=== PATIENT | female | born 1985 | race Caucasian/White ===

== ENCOUNTER 2024-03-17 05:55 | Inpatient (IN) | payer OTHER ==
[2024-03-17] MEDS: ELECTROLYTE-148 SOLN 500 ML IV SCH (06:20)
[2024-03-17 06:43] VITALS: BMI 31.4
[2024-03-17] MEDS: ELECTROLYTE-148 SOLN 1,000 ML IV SCH ×2 (07:30→10:47)
[2024-03-17] MEDS: CITRIC ACID/SODIUM CITRATE 30 ML UNIT-DOSE CUP PO ONE (07:35)
[2024-03-17] MEDS ORDERED: morphine SULFATE/PF 1 MG/2 ML (2cc Syringe - QUVA) ONE (07:56)
[2024-03-17] MEDS ORDERED: OXYTOCIN 10 UNITS/ML VIAL ONE (07:56)
[2024-03-17] MEDS ORDERED: FENTANYL CITRATE/PF 50 MCG/ML VIAL ONE (07:56)
[2024-03-17] MEDS ORDERED: PHENYLEPHRINE HCL 10 MG/1 ML SINGLE DOSE VIAL ONE (07:56)
[2024-03-17] MEDS ORDERED: KETOROLAC TROMETHAMINE 30 MG/1 ML VIAL ONE (07:56)
[2024-03-17] MEDS ORDERED: ONDANSETRON 4 MG/2 ML VIAL ONE (07:56)
[2024-03-17] MEDS ORDERED: ceFAZolin SODIUM 1 GM VIAL ONE (07:59)
[2024-03-17] MEDS ORDERED: METHYLERGONOVINE MALEATE 0.2 MG/1 ML AMP IM PRN (08:30)
[2024-03-17] MEDS ORDERED: ONDANSETRON 4 MG/2 ML VIAL IVPUSH PRN (10:27)
[2024-03-17] MEDS: FERROUS SO4 325 MG TABLET (FP) PO SCH (10:46)
[2024-03-17] MEDS: PRENATAL VITAMINS W/ FOLIC ACID TABLET (FP) PO SCH (10:47)
[2024-03-17] MEDS: ACETAMINOPHEN 1000 MG/100 ML BAG IVPB PRN (13:04)
[2024-03-17] MEDS: OXYTOCIN 20 UNITS in 0.9% NS 20 UNIT/1,000 ML INFUS.BAG IV SCH (16:28)
[2024-03-17] MEDS: IBUPROFEN 800 MG/8 ML IJ IVPB PRN (18:29)
[2024-03-17] MEDS ORDERED: oxyCODONE HCL 5 MG TABLET PO PRN ×2 (20:30)
[2024-03-18] MEDS: SIMETHICONE 80 MG TAB.CHEW (FP) PO PRN (02:01)
[2024-03-18] MEDS: LEVOTHYROXINE NA 50 MCG TABLET (FP) PO SCH (06:09)
[2024-03-18 07:54] LABS: BASO % 0.5 % (0-2.0); EOS % 1.4 % (0-4.5); HEMATOCRIT 30.4 % (32.4-45.2); HEMOGLOBIN 10.4 GM/dL (10.7-15.3); LYMPH % 12.8 % (8-40); MCH 32.4 pg (25.7-33.7); MCHC 34.3 g/dl (32.0-36.0); MEAN CELL VOLUME 94.4 fl (80-96); MEAN PLT VOLUME 9.1 fl (7.5-11.1); MONO % 6.2 % (3.8-10.2); NEUT % 79.1 % (42.8-82.8); PLATELET COUNT 180 10^3/uL (134-434); RBC 3.22 M/mm3 (3.60-5.2); WHITE BLOOD COUNT 15.6 K/mm3 (4.0-10.0)
[2024-03-18] MEDS ORDERED: BISACODYL 10 MG SUPP.RECT RC PRN (08:30)
[2024-03-18] MEDS: SENNOSIDES/DOCUSATE COMBO (SENNA PLUS) TABLET (UD) PO PRN (09:59)
[2024-03-18 10:39] VITALS: RESP 18
[2024-03-18] MEDS: IBUPROFEN 600 MG TABLET (FP) PO PRN (12:09)
[2024-03-18] MEDS: ACETAMINOPHEN 325 MG TABLET (FP) PO PRN (19:20)
[2024-03-19 22:16] VITALS: PULSE 90
[2024-03-20 10:40] VITALS: BP 125/72; TEMP 98.5
== END 2024-03-20 12:15 | disposition home or self-care (01) | DRG 540 ==
LOC: JLDR 05:55 → J3W 11:50
PROVIDERS: ADMIT Obstetrics & Gynecology; ATTEND Obstetrics & Gynecology
PROC: 10D00Z1 Extraction of Products of Conception, Low, Open Approach (ICD-10-PCS; principal; 2024-03-17)
DX: O34.211 Maternal care for low transverse scar from previous cesarean delivery (principal); N85.8 Other specified noninflammatory disorders of uterus; Z3A.39 39 weeks gestation of pregnancy; Z37.0 Single live birth
CPT/HCPCS: 36415; 59409; 80053; 85025; 85610; 85730; 86780; 86803; 86850; 86900; 86901; 87389; 88307-TC; J0131